=== PATIENT | female | born 1975 | race Two or more races ===

== ENCOUNTER → 2017-09-29 | Outpatient (CLI) | payer BC | END | disposition home or self-care (01) | LOC: MAMMO 13:27 | DX: Z12.31 Encounter for screening mammogram for malignant neoplasm of breast (principal) | CPT/HCPCS: 77067 ==

== ENCOUNTER → 2017-10-14 | Outpatient (CLI) | payer BC | END | disposition home or self-care (01) | LOC: MAMMO 09:45 | DX: R92.8 Other abnormal and inconclusive findings on diagnostic imaging of breast (principal) | CPT/HCPCS: 76641; 77065; G0279 ==

== ENCOUNTER → 2018-04-27 | Outpatient (CLI) | payer BC ==
[2013-10-22 14:30] VITALS: BP 178/88
[~2018-04-27] MED LIST: CHOL500045 PO; HYDR12.58 PO; IOHEXOL 300 MG/ML 100ML VIAL. IV ONE; LEVO50TA5 PO; LISI10TA2 PO; MULT-18 PO; OMEG1CAP38 PO
--- NOTE | 2018-04-27 14:10 | KCIC ---
CT CHEST W/CONTRAST Indication: Abnormal chest x-ray, with posterior mass. Intermittent shortness of breath. Exposure: One or more of the following individualized dose reduction techniques were utilized for this examination: 1. Automated exposure control 2. Adjustment of the mA and/or kV according to patient size 3. Use of iterative reconstruction technique. Comparison: None are available. Contrast: Intravenous contrast given. Thoracic aorta: Pulsatility artifact at the ascending aorta. No evidence of aneurysm or descending aortic dissection. Great vessel origins:Patent Pulmonary arteries:Main central arteries appear patent. Thyroid gland:Visualized aspect is unremarkable. Lymph nodes: Small axillary lymph nodes are identified no significant axillary, hilar or mediastinal lymph node enlargement is seen. Heart: No significant pericadial effusion. Esophagus: Unremarkable Pleural spaces: No significant effusion Lungs: Multiple bilateral pulmonary nodules are identified. Largest in the posterior left lung base adjacent to the pleura measures 18 mm. Largest in the right lung is in the right upper lobe and measures 10 mm. Trachea and central airways: Patent Spine: Mild degenerative spurring. Bones: No destructive process. Upper abdomen: Slices through the upper abdomen are limited due to the technique. No obvious acute findings. External Soft Tissue: There is a somewhat greater area of breast density on the left, posterolateral eighth, slightly hypodense, could represent a mass or abscess. Impression: 1. Numerous pulmonary nodules, most concerning for metastatic disease. 2. Asymmetric density in the left posterior lateral breast, suspicious for a mass such as breast cancer. Recommend clinical and mammography/sonography correlation. 3. Findings were discussed by telephone with Dr. Nina Almonte at 2:00 PM on April 27, 2018. Electronically signed by: Joaquim Polk MD (04/27/2018 2:06 PM) [facility]
== END | disposition home or self-care (01) ==
LOC: KCIC CT 12:27
PROVIDERS: ATTEND Family Medicine
DX: R91.8 Other nonspecific abnormal finding of lung field (principal); R93.89 Abnormal findings on diagnostic imaging of other specified body structures; M46.00 Spinal enthesopathy, site unspecified
CPT/HCPCS: 71260; Q9967

== ENCOUNTER → 2020-04-13 | Outpatient (CLI) | payer BC ==
[2013-10-22 14:30] VITALS: BP 178/88
[~2020-04-13] MED LIST changes: -IOHEXOL 300 MG/ML 100ML VIAL. IV ONE
--- NOTE | 2020-04-17 15:15 | RAD ---
BILATERAL SCREENING MAMMOGRAM, 3-D History: Routine screening. Comparison: 01/15/2013, 09/29/2017. Technique: MLO and CC digital tomosynthesis (3D) images obtained. Radiologist reviewed these images on dedicated workstation. Findings: Breast Tissue Density D :The breasts are extremely dense, which lowers the sensitivity of mammography. There are no dominant masses, suspicious microcalcifications, or architectural distortion. A biopsy clip marker involves the right upper outer breast. IMPRESSION: No mammographic evidence of malignancy. Recommend routine screening. BI-RADS category 1: Negative. The images were reviewed with computer-aided detection. Patient information is entered into reminder system with a target due date for the next screening mammogram. Mammography is the most sensitive method for finding small breast cancers, but it does not detect them all and is not a substitute for careful clinical examination. A negative mammogram does not negate a clinically suspicious finding and should not result in delay in biopsying a clinically suspicious abnormality. "Our facility is accredited by the [employer] Mammography [employer]." Electronically signed by: Jose Glasgow MD (04/17/2020 3:12 PM) [id number]
== END ==
LOC: MAMMO 15:08
PROVIDERS: ATTEND Family Medicine
DX: Z12.31 Encounter for screening mammogram for malignant neoplasm of breast (principal)
CPT/HCPCS: 77063; 77067